=== PATIENT | female | born 1980 | race Two or more races ===

== ENCOUNTER 2016-04-28 11:38 | Emergency (ER) | payer SELFPAY ==
[2016-04-28 12:06] LABS: URINE BILIRUBIN NEGATIVE (NEGATIVE); URINE BLOOD 4+ (NEGATIVE); URINE GLUCOSE (UA) NEGATIVE (NEGATIVE); URINE LEUKOCYTE ESTERASE TRACE (NEGATIVE); URINE NITRITE NEGATIVE (NEGATIVE); URINE PROTEIN 1+ (NEGATIVE); URINE UROBILINOGEN NORMAL (0-1 mg/dl)
[2016-04-28 12:07] LABS: URINE APPEARANCE HAZY; URINE COLOR RED/YELLOW
[2016-04-28 12:23] LABS: URINE BACTERIA FEW; URINE RBC 50-100 /hpf
[2016-04-28 12:33] LABS: HCG,QUALITATIVE URINE NEGATIVE
[2016-04-28] MEDS ORDERED: SODIUM CHLORIDE 0.9% 1,000 ML ONE (12:34)
[2016-04-28] MEDS ORDERED: HYDROMORPHONE HCL 1 MG/ML SYRINGE ONE (12:34)
[2016-04-28] MEDS ORDERED: ONDANSETRON 4 MG/2ML 2 ML VIAL ONE (12:34)
[2016-04-28] MEDS ORDERED: TAMSULOSIN HCL 0.4 MG CAPSULE.DR ONE (12:52)
[2016-04-28] MEDS ORDERED: KETOROLAC TROMETHAMINE 30 MG/ML 1 ML VIAL ONE (12:52)
== END 2016-04-28 13:45 | disposition home or self-care (01) ==
LOC: ED 11:38
DX: N20.1 Calculus of ureter (principal); Z87.442 Personal history of urinary calculi
CPT/HCPCS: 81025; 87086; 81001; 96375 ×2; 99283 ×2; 96374; 96361; J1170; J1885; J2405; J7030